=== PATIENT | female | born 1945 | race Caucasian/White ===

== ENCOUNTER 2022-09-26 15:45 | Outpatient (REF) | payer MEDICARE, SELFPAY ==
[2022-09-26 13:57] LABS: CREATININE 0.8 mg/dL (0.55-1.02); Estimated GFR 75.84 (mL/min/1.73m2)
== END 2022-09-26 15:46 | disposition home or self-care (01) ==
LOC: LBN 15:45
PROVIDERS: PCP Family Medicine; Visit Provider Radiology Radiation Oncology
DX: C50.412 Malignant neoplasm of upper-outer quadrant of left female breast (principal); C50.212 Malignant neoplasm of upper-inner quadrant of left female breast
CPT/HCPCS: 82565

== ENCOUNTER 2022-10-10 01:30 | Outpatient (CLI) | payer MEDICARE, SELFPAY ==
--- NOTE | 2022-10-10 | DI.CT_ITS ---
Exam(s) CT CHEST/ABD/PEL W EXAM: CT CHEST/ABD/PEL W CLINICAL HISTORY: LT BREAST CANCER C50.212 Z17.0 C50.412 LIVER LESION. TECHNIQUE: Imaging Protocol: Axial computed tomography images with coronal and sagittal reformatted images were created and reviewed CONTRAST MATERIAL: Intravenous: Omnipaque 350 Contrast volume:100 ml Oral: Yes. Oral contrast was also administered for bowel opacification. COMPARISON: No exams were available for comparison FINDINGS: CHEST: LUNGS: There are few small 2-3 millimeter nodules in the right upper lobe. One similar size nodule s een in the opposite-left lung. No confluent infiltrates nor pleural effusions. No significant focal findings in trachea and mainstem bronchi. No bronchiectasis. Some mild scarring in left lung apex noted. MEDIASTINUM: There are slightly enlarged lymph nodes in both hilar regions as well as in the subcarin al region and anterior left mediastinal fat adjacent to the aortic arch. There is no supraclavicular adenopathy. There is no axillary adenopathy. Visualized thyroid unremarkable. CARDIAC: Mild cardiomegaly. No pericardial effusion. Caliber of the thoracic aorta upper normal. N o dissection. OSSEOUS: No significant osseous lesions.. ABDOMEN: There is no ascites. LIVER: No focal hepatic lesions identified. GALLBLADDER/BILIARY: Gallbladder surgically absent. CBD is not dilated. PANCREAS: In the posterior body of the pancreas there is a 0.9 x 0.8x 0.9 cm hypodensity which is eit her cyst or small cystic neoplasm. SPLEEN: Spleen is not enlarged. There are no intrasplenic lesions. Splenic and portal veins are monreal nt. ADRENALS: There are no significant adrenal masses. KIDNEYS: No calculi nor hydronephrosis. No solid renal masses. There is a benign cyst in the inferior pole of the left kidney which measures 1.9 x 1.8 cm. No solid renal masses. ABDOMINAL AORTA: Calcified but not enlarged. Also no aneurysms of the iliac arteries. LYMPH NODES: There is no retroperitoneal nor paraaortic adenopathy. ABDOMINAL WALL: No evidence of significant anterior abdominal wall nor inguinal hernia. GI: There is no evidence of bowel obstruction. PELVIS: LYMPH NODES: There is no intrapelvic nor inguinal adenopathy. GI: No evidence of appendicitis.No evidence of sigmoid diverticulitis. URINARY BLADDER: No calculi nor masses evident REPRODUCTIVE: Uterus is surgically absent. There are no abnormal adnexal masses. No free fluid in the pelvis. OSSEOUS: No significant osseous lesions. Multilevel advanced disc space narrowing in the lumbar spine noted at each level. No listhesis. IMPRESSION: 1. There are few tiny 2 millimeter right lung nodules. Presently with benign appearance. 2. Slightly enlarged lymph nodes are noted in the subcarinal region, anterior left mediastinal fat, a nd both hilar regions. 3. Evidence of previous cholecystectomy and hysterectomy. There is no bowel obstruction. No ascites. 4. There is a small 9 x 8 x 9 millimeter hypodensity in the inferior aspect of the body of the pancre as which is probably an incidental cyst or cystic neoplasm. Recommend follow-up contrast infused MRI with pancreatic protocol. RADIATION DOSE DELIVERED: 1,814.49mGy.cm Total DLP DATA REPOSITORY: All CT scans at this facility are submitted to the National Radiology Data Registry (NRDR) Dose Index Registry (DIR) with the [employer] ([employer]). RADIATION OPTIMIZATION: All CT scans at this facility use at least one of these dose optimization te chniques: automated exposure control; mA and/or kV adjustment per patient size (includes targeted exa ms where dose is matched to clinical indication); or iterative reconstruction.
[2022-10-10] MEDS: Barium Sulfate 2% W/V-Berry Smoothie 450 ML BTL PO (09:26)
[2022-10-10] MEDS: Normal Saline Flush 10 ML SYR IVP (11:15)
[2022-10-10] MEDS: Normal Saline - Diluent 50 ML VIAL IJ (11:15)
[2022-10-10] MEDS: Omnipaque 350 MG/ML 500 ML BTL-Imaging package 100 ML IJ (11:16)
== END 2022-10-10 01:50 ==
LOC: DI 01:30
PROVIDERS: PCP Family Medicine; Visit Provider Radiology Radiation Oncology
DX: R91.1 Solitary pulmonary nodule (principal); R93.89 Abnormal findings on diagnostic imaging of other specified body structures
CPT/HCPCS: 74177; 71260